=== PATIENT | female | born 1945 | race Caucasian/White ===

== ENCOUNTER → 2020-03-09 | Outpatient (CLI) | payer OTHER | LOC: SJCVCIMAG 08:53 | PROVIDERS: ATTEND Family Medicine | DX: I65.23 Occlusion and stenosis of bilateral carotid arteries (principal); I08.0 Rheumatic disorders of both mitral and aortic valves; Z86.73 Personal history of transient ischemic attack (TIA), and cerebral infarction without residual deficits ==

== ENCOUNTER → 2020-03-20 | Outpatient (CLI) | payer OTHER | LOC: SJCVC 12:00 | PROVIDERS: ATTEND Internal Medicine | DX: R00.0 Tachycardia, unspecified (principal); I10 Essential (primary) hypertension; E78.5 Hyperlipidemia, unspecified; I65.23 Occlusion and stenosis of bilateral carotid arteries; Z79.899 Other long term (current) drug therapy; Z87.891 Personal history of nicotine dependence ==

== ENCOUNTER → 2020-04-30 | Outpatient (CLI) | payer OTHER | LOC: MRI 12:34 | PROVIDERS: ATTEND Psychiatry & Neurology Neuromuscular Medicine | DX: G44.53 Primary thunderclap headache (principal); G45.3 Amaurosis fugax ==

== ENCOUNTER → 2020-05-09 | Outpatient (CLI) | payer OTHER | LOC: SJCVC 15:39 | PROVIDERS: ATTEND Internal Medicine | DX: I65.23 Occlusion and stenosis of bilateral carotid arteries (principal); I10 Essential (primary) hypertension; Z79.899 Other long term (current) drug therapy; Z87.891 Personal history of nicotine dependence ==